=== PATIENT | female | born 1980 | race Caucasian/White ===

== ENCOUNTER 2019-01-19 08:54 | Outpatient (CLI) | payer OTHER ==
--- NOTE | 2019-01-19 12:32 | MRI Report ---
Reason: GANGLION Procedure Date: 01/19/2019 Accession Number: [id number] / [id number] Procedure: MRI - Ankle LT W/O CPT Code: FULL RESULT: EXAM: LEFT ANKLE/HINDFOOT MRI WITHOUT CONTRAST EXAM DATE: 01/19/2019 10:18 AM. CLINICAL HISTORY: Ganglion cyst, pain. COMPARISON: None. TECHNIQUE: Multiplanar, multisequence T1-weighted and fluid-sensitive sequences of the ankle/hindfoot without contrast. Other: None. FINDINGS: Bones and articular surfaces: No significant ankle joint effusion. No osteochondral lesions. No significant articular cartilage defects. No fracture identified. Small amount of marrow edema at the base of the os trigonum. Musculotendinous structures: Irregular fusiform thickening of the Achilles tendon with trace amount of increased intrasubstance signal. Otherwise intact. Plantar fascia intact. Remaining visualized anterior to posterior and posterior lateral ankle tendons appear intact. No muscle atrophy or fatty replacement. Ligaments: The anterior and posterior talofibular, calcaneofibular and deltoid ligaments appear intact. There is increased T2 signal and loss of T1 fatty signal within the tarsal sinus. There may be a tiny ganglion cyst formation within the tarsal sinus but no discrete defined measurable cyst. 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 [facility]
== END 2019-01-19 08:55 | disposition home or self-care (01) ==
LOC: DI 08:54
PROVIDERS: ATTEND Family Medicine
DX: M25.572 Pain in left ankle and joints of left foot (principal)

== ENCOUNTER 2022-11-04 13:30 | Outpatient (CLI) | payer OTHER | END 2022-11-04 13:45 | disposition home or self-care (01) | LOC: MERGE 13:30 → LAB.N 13:30 | PROVIDERS: ATTEND Specialist | DX: R30.0 Dysuria (principal) | CPT/HCPCS: 87077; 87086; 87181 ==